=== PATIENT | male | born 1970 | race Caucasian/White ===

== ENCOUNTER 2017-10-30 08:05 | Emergency (ER) | payer BC, OTHER ==
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
--- NOTE | 2017-10-31 16:41 | RADIOLOGY REPORT ---
EXAM: FINGER(S), LEFT HISTORY: PAIN IN THIRD DIGIT AT LEVEL OF PIP JOINT POST INJURY. TECHNIQUE: Three views of the third digit of the left hand. COMPARISON: None. ENCOUNTER: Initial. FINDINGS: There is normal bone mineralization. No acute osseous fracture is seen nor is there dislocation. The articular relations are maintained. There is soft tissue swelling centered about the third PIP joint, mild in degree. IMPRESSION: NO ACUTE FRACTURE NOR DISLOCATION. MILD SOFT TISSUE SWELLING NOTED ABOUT THE THIRD PIP JOINT. [facility] [id number] [facility]
== END 2017-10-30 09:16 | disposition home or self-care (01) ==
LOC: ER 08:05
DX: S63.253A Unspecified dislocation of left middle finger, initial encounter (principal); X50.0XXA Overexertion from strenuous movement or load, initial encounter
CPT/HCPCS: 73140; 99283

== ENCOUNTER 2017-12-10 11:54 | Emergency (ER) | payer OTHER ==
--- NOTE | 2017-12-10 12:30 | Emergency Department Record ---
History of Present Illness - General Chief complaint: Rash Stated complaint: RASH Time Seen by Provider: 12/10/17 12:14 Source: Patient Mode of Arrival: Ambulatory Limitations: No limitations - History of Present Illness Initial comments: The patient is here due to a very pruritic rash to the R arm for almost a week. His dog did roll in deep feces and was in the brush and then he did hose him off. The next day he developed a rash to the R forearm which has progressively worsened. The rash is very itchy but not painful or warm. He has had no fever, chills, or pain to the rash or R arm. He does have a hx of similar rashes with poison blossom. complaint: Rash Onset/Timin -: Days(s) Location: RUE - Related Data Previous Rx's Medication Instructions Recorded Prednisone [Prednisone 20Mg] 20 mg PO ASDIR #15 tab 12/10/17 Allergies Allergy/AdvReac Type Severity Reaction Status Date / Time No Known Drug Allergies Allergy Verified 12/10/17 12:07 Travel Screening - Travel/Exposure Within Last 30 Days Have you traveled within the last 30 days?: No - Travel/Exposure Within Last Year Have you traveled outside the [place] in the last year?: No - Additonal Travel Details Have you been exposed to anyone with a communicable illness?: No - Travel Symptoms Symptom Screening: None Review of Systems Constitutional: Denies: Chills, Fever Eyes: Denies: Eye discharge ENT: Denies: Congestion Respiratory: Denies: Cough, Dyspnea Past Medical History - SOCIAL HISTORY Smoking Status: Never smoker Alcohol Use: Occasional Drug Use: None - RESPIRATORY Hx Respiratory Disorders: No - CARDIOVASCULAR Hx Cardio Disorders: No - NEURO Hx Neuro Disorders: No - GI Hx GI Disorders: No - Hx Genitourinary Disorders: No - ENDOCRINE Hx Endocrine Disorders: No - MUSCULOSKELETAL Hx Musculoskeletal Disorders: No - PSYCH Hx Psych Problems: No - HEMATOLOGY/ONCOLOGY Hx Hematology/Oncology Disorders: No Family Medical History Any Significant Family History?: No Physical Exam - General General Appearance: Alert, Oriented x3, Cooperative, No acute distress - Head Head exam: Atraumatic, Normocephalic - Eye Eye exam: Normal appearance, PERRL - Neck Neck exam: Normal inspection, Full ROM. negative: Tenderness - Respiratory Respiratory exam: Normal lung sounds bilaterally. negative: Respiratory distress - Cardiovascular Cardiovascular Exam: Regular rate, Normal rhythm, Normal heart sounds - GI/Abdominal GI/Abdominal exam: Soft. negative: Rebound, Rigid, Tenderness - Extremities Extremities exam: negative: Normal inspection (There is slight edema to the R forearm with a confluent irregular papular erythematous rash with slight clear drainage. There is no warmth, or tenderness to palpation. It appears to be a form of poison blossom.) Course Vital Signs 12/10/17 12:03 Temperature 98.2 F Pulse Rate 72 Respiratory 16 Rate Blood Pressure 140/90 Pulse Ox 98 - Reevaluation(s) Reevaluation #1: I did explain to the patient the need for an oral OTC antihistamine for itching and the need to start the Prednisone tomorrow. He is to see his PCP if not better and return to the ER for any worsening symptoms. 12/10/17 12:27 Disposition Disposition: Discharge Clinical Impression: Poison blossom dermatitis Disposition: Home, Self-Care Condition: (2) Stable Instructions: Acute Rash (ED) Additional Instructions: Please take an OTC antihistamine for the itching and start the Prednisone tomorrow. Please see your family doctor for recheck in 3 days if not better and return to the ER for any worsening symptoms. Prescriptions: Prednisone [Prednisone 20Mg] 20 mg PO ASDIR #15 tab Forms: Patient Portal Access Time of Disposition: 12:30 Quality - Quality Measures Quality Measures: N/A - Blood Pressure Screening View Details: Yes Does Patient Have Any of the Following: No Blood Pressure Classification: Hypertensive Reading Systolic Measurement: 140 Diastolic Measurement: 90 Screening for High Blood Pressure: < First Hypertensive BP, F/U Documented > [ G8950] First Hypertensive Follow-up Interventions: Referral to alternative/primary care provider.
[2017-12-10] MEDS: METHYLPREDNISOLONE PF 125MG/VIAL IM ONE (12:31)
== END 2017-12-10 12:56 | disposition home or self-care (01) ==
LOC: ER 11:54
DX: L23.7 Allergic contact dermatitis due to plants, except food (principal)
CPT/HCPCS: 96372; 99283; J2930

== ENCOUNTER 2018-08-09 06:02 | Emergency (ER) | payer OTHER ==
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
[2018-08-09 06:14] LABS: ABSOLUTE NEUTROPHIL COUNT 3.12; BASO % 0.5 % (0-6); EOS % 2.3 % (0-6); GRAN % 50.8 % (47-80); HEMATOCRIT 46.8 % (42.0-52.0); HEMOGLOBIN 16.2 gm/dl (14.0-18.0); LYMPH % 33.9 % (16-45); MEAN CELL VOLUME 90.9 fl (81-97); MEAN CORPUSCULAR HEMOGLOBIN 31.5 pg (27-33); MEAN CORPUSCULAR HGB CONC 34.6 g/dl (32-36); MEAN PLATELET VOLUME 9.7 fl (7.4-10.4); MONO % 12.5 % (0-9); PLATELET COUNT 334 K/uL (130-400); RED BLOOD COUNT 5.15 M/uL (4.40-5.70); WHITE BLOOD COUNT W/O DIFF 6.1 K/uL (4.2-12.2)
[2018-08-09] MEDS ORDERED: 0.9 % SODIUM CHLORIDE 1000ML 1,000 ML IV SCH (06:15)
[2018-08-09 06:22] LABS: BLOOD UREA NITROGEN 14 mg/dL (6-20); CREATININE 0.8 mg/dL (0.7-1.2); EST GLOMERULAR FILTRATION RATE > 60 mL/min
[2018-08-09 06:25] LABS: GLUCOSE,RANDOM 131 mg/dL (74-109)
[2018-08-09 06:27] LABS: ALB/GLOB RATIO 1.7 (1.1-1.8); ALBUMIN 4.4 g/dL (4.0-5.0); ALKALINE PHOSPHATASE 74 U/L (40-129); ALT/SGPT 19 U/L (<41); AST/SGOT 28 U/L (10.0-50.0)
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
== END 2018-08-09 07:32 | disposition home or self-care (01) ==
LOC: ER 06:02
DX: S22.31XA Fracture of one rib, right side, initial encounter for closed fracture (principal); S80.211A Abrasion, right knee, initial encounter; S60.417A Abrasion of left little finger, initial encounter; S50.11XA Contusion of right forearm, initial encounter; S80.01XA Contusion of right knee, initial encounter; S50.811A Abrasion of right forearm, initial encounter; S50.312A Abrasion of left elbow, initial encounter; R07.89 Other chest pain; R06.00 Dyspnea, unspecified; K22.8 Other specified diseases of esophagus; V20.0XXA Motorcycle driver injured in collision with pedestrian or animal in nontraffic accident, initial encounter; Y92.410 Unspecified street and highway as the place of occurrence of the external cause
CPT/HCPCS: 99285 ×2; 85025; 80053; 73564; 72125; 71250; 70450; G0480; 80320; J7030